=== PATIENT | male | born 1975 | race Caucasian/White ===

== ENCOUNTER 2018-07-21 06:12 | Day surgery (SDC) | payer OTHER ==
[2018-07-20 12:08] VITALS: BMI 35.7
[2018-07-21] MEDS ORDERED: Midazolam HCl 2 mg/2 ml Vial ONE ×2 (06:45→07:27)
[2018-07-21] MEDS ORDERED: Fentanyl 100 MCG/2 ML VIAL ONE ×3 (06:46→08:28)
[2018-07-21] MEDS ORDERED: Lidocaine 1% (PF) 30 ML VIAL ONE (06:46)
[2018-07-21] MEDS ORDERED: Scopolamine 1.5 mg/72 hour Patch ONE (06:54)
[2018-07-21] MEDS ORDERED: Bupivacaine HCl 0.5%/Epinephrine 1:200,000/PF 30 ml Vial ONE (08:01)
[2018-07-21] MEDS ORDERED: HYDROcodone/Acetaminophen 7.5/325 mg Tablet ONE (11:13)
[2018-07-21] MEDS ORDERED: PROPOFOL 200 MG/20 ML VIAL ONE (16:37)
[2018-07-21] MEDS ORDERED: Ondansetron PF 4 MG/2 ML Vial ONE (16:37)
[2018-07-21] MEDS ORDERED: Glycopyrrolate 0.2 MG/ML 5 ML SYRINGE ONE (16:37)
[2018-07-21] MEDS ORDERED: PHENYLEPHRINE-NS 100 MCG/ML 10 ML SYRINGE ONE (16:37)
[2018-07-21] MEDS ORDERED: Lidocaine 1% PF 5 ML VIAL ONE (16:37)
[2018-07-21] MEDS ORDERED: Ketorolac Tromethamine 30 MG/ML VIAL ONE (16:37)
[2018-07-21] MEDS ORDERED: Rocuronium Bromide 10 MG/ML (10ML VIAL) ONE (16:37)
[2018-07-21] MEDS ORDERED: Dexamethasone 20 MG/5 ML VIAL ONE (16:37)
--- NOTE | 2018-07-21 16:50 | OP ---
DATE OF PROCEDURE: 07/21/2018 PREOPERATIVE DIAGNOSIS: Rupture of the left Achilles tendon. POSTOPERATIVE DIAGNOSIS: Rupture of the left Achilles tendon with the rupture being directly from the calcaneus. PROCEDURE PERFORMED: Repair of Achilles tendon back to the left calcaneus. ANESTHESIA: General. DESCRIPTION OF PROCEDURE: The patient was given preoperative IV antibiotics, taken to the operating room, placed in supine position. Satisfactory general anesthesia was performed. The patient was placed in the prone position. All bony prominences were well padded. The left foot/leg was sterilely prepped and draped in usual fashion. After exsanguination of tourniquet, the mid left thigh was raised to 250 mmHg. A longitudinal incision was made over the posterior aspect of the ankle over the Achilles tendon, slightly lateral to the midline. Blunt and sharp dissection was made down to the Achilles tendon, which noted to have ruptured from the calcaneus. There was some bone fragment still in the distal aspect of the tendon. Sharper edges were smoothed down with a rongeur. The area where the Achilles tendon normally attaches was prepared and then the tendon was repaired using a double row anchor using Arthrex anchors, that measured 4.75 and using #2 FiberWire in a double row repair, also using noncellularized dermis graft over the repair. This provided excellent fixation for the repair. The wound was copiously irrigated and then closed using 0 Vicryl for the subcutaneous layer. The skin was closed with 3-0 Rapide. The wound was then infiltrated with 20 mL of 0.5% Marcaine with epinephrine. Sterile dressing was applied. The patient was then placed in his boot in approximately 10 to 15 degrees of plantar flexion. The patient was awakened, extubated, and transferred to recovery room in stable condition. ESTIMATED BLOOD LOSS: None. COMPLICATION: None. TOURNIQUET TIME: 73 minutes. Job ID: [id number]
== END 2018-07-21 11:46 | disposition home or self-care (01) ==
LOC: SDC 06:12
PROVIDERS: ATTEND Orthopaedic Surgery
PROC: 0LQP0ZZ Repair Left Lower Leg Tendon, Open Approach (ICD-10-PCS; principal; 2018-07-21)
DX: S86.012A Strain of left Achilles tendon, initial encounter (principal); F17.200 Nicotine dependence, unspecified, uncomplicated; Y93.02 Activity, running; X58.XXXA Exposure to other specified factors, initial encounter
CPT/HCPCS: C1713; J0131; J0670; J0690; J1100; J1885; J2001; J2250; J2405; J2704; J3010